=== PATIENT | female | born 1955 | race Caucasian/White ===

== ENCOUNTER → 2019-11-04 17:41 | Outpatient (BNVA) | payer MEDICARE, MEDICAID, SELFPAY | PROVIDERS: Family Provider Family Medicine; PCP Registered Nurse; Visit Provider Family Medicine | DX: E11.9 Type 2 diabetes mellitus without complications (principal); I10 Essential (primary) hypertension; E78.1 Pure hyperglyceridemia; J45.30 Mild persistent asthma, uncomplicated; Z77.120 Contact with and (suspected) exposure to mold (toxic) | CPT/HCPCS: 80048; 80061; 83036 ==

== ENCOUNTER → 2020-05-11 11:10 | Outpatient (BNVA) | payer MEDICARE, MEDICAID, SELFPAY | PROVIDERS: Family Provider Family Medicine; PCP Registered Nurse; Visit Provider Family Medicine | DX: R05 Cough (principal); J45.30 Mild persistent asthma, uncomplicated; I10 Essential (primary) hypertension; I25.10 Atherosclerotic heart disease of native coronary artery without angina pectoris; E03.9 Hypothyroidism, unspecified; E11.9 Type 2 diabetes mellitus without complications; E87.5 Hyperkalemia | CPT/HCPCS: 80053; 83036; 84443 ==

== ENCOUNTER → 2020-09-04 16:43 | Outpatient (BNVA) | payer MEDICARE, MEDICAID, SELFPAY | PROVIDERS: Family Provider Family Medicine; PCP Registered Nurse; Visit Provider Family Medicine | DX: E03.9 Hypothyroidism, unspecified (principal); I10 Essential (primary) hypertension; E11.9 Type 2 diabetes mellitus without complications; Z23 Encounter for immunization; E78.1 Pure hyperglyceridemia | CPT/HCPCS: 80053; 80061; 83036; 84443 ==

== ENCOUNTER → 2020-12-20 18:00 | Outpatient (BNVA) | payer MEDICARE, MEDICAID, SELFPAY | PROVIDERS: Family Provider Family Medicine; PCP Registered Nurse; Visit Provider Family Medicine | DX: E11.9 Type 2 diabetes mellitus without complications (principal); N18.9 Chronic kidney disease, unspecified; K76.0 Fatty (change of) liver, not elsewhere classified | CPT/HCPCS: 80053; 83036 ==

== ENCOUNTER → 2021-02-28 11:40 | Outpatient (BNVA) | payer MEDICARE, MEDICAID, SELFPAY | PROVIDERS: Family Provider Family Medicine; PCP Family Medicine; Visit Provider Family Medicine | DX: E11.9 Type 2 diabetes mellitus without complications (principal); I25.10 Atherosclerotic heart disease of native coronary artery without angina pectoris; E03.9 Hypothyroidism, unspecified | CPT/HCPCS: 80053; 83036; 84439; 84443; 84481 ==

== ENCOUNTER → 2021-06-05 14:52 | Outpatient (BNVA) | payer MEDICARE, MEDICAID, SELFPAY | PROVIDERS: Family Provider Family Medicine; PCP Family Medicine; Visit Provider Family Medicine | DX: E11.9 Type 2 diabetes mellitus without complications (principal); N18.30 Chronic kidney disease, stage 3 unspecified | CPT/HCPCS: 80048; 83036 ==

== ENCOUNTER → 2021-09-04 14:38 | Outpatient (BNVA) | payer MEDICARE, MEDICAID, SELFPAY | PROVIDERS: Family Provider Family Medicine; PCP Family Medicine; Visit Provider Family Medicine | DX: E03.9 Hypothyroidism, unspecified (principal); E11.9 Type 2 diabetes mellitus without complications | CPT/HCPCS: 80048; 83036; 84439; 84443; 84481 ==

== ENCOUNTER → 2021-12-04 14:13 | Outpatient (BNVA) | payer MEDICARE, MEDICAID, SELFPAY | PROVIDERS: Family Provider Family Medicine; PCP Family Medicine; Visit Provider Family Medicine | DX: E03.9 Hypothyroidism, unspecified (principal); I10 Essential (primary) hypertension; I25.118 Atherosclerotic heart disease of native coronary artery with other forms of angina pectoris; J30.89 Other allergic rhinitis; N18.30 Chronic kidney disease, stage 3 unspecified; J45.30 Mild persistent asthma, uncomplicated; I25.10 Atherosclerotic heart disease of native coronary artery without angina pectoris; E78.1 Pure hyperglyceridemia; E11.9 Type 2 diabetes mellitus without complications; R10.9 Unspecified abdominal pain; L82.1 Other seborrheic keratosis | CPT/HCPCS: 80048; 80061; 81000; 83036; 84443; 87086 ==

== ENCOUNTER → 2022-06-04 14:40 | Outpatient (BNVA) | payer MEDICARE, MEDICAID, SELFPAY | PROVIDERS: Family Provider Family Medicine; PCP Family Medicine; Visit Provider Family Medicine | DX: I10 Essential (primary) hypertension (principal); E11.9 Type 2 diabetes mellitus without complications; E03.9 Hypothyroidism, unspecified; I25.10 Atherosclerotic heart disease of native coronary artery without angina pectoris; J30.89 Other allergic rhinitis; J45.30 Mild persistent asthma, uncomplicated; N18.30 Chronic kidney disease, stage 3 unspecified; I25.118 Atherosclerotic heart disease of native coronary artery with other forms of angina pectoris; R05.3 Chronic cough; Z77.120 Contact with and (suspected) exposure to mold (toxic) | CPT/HCPCS: 71046; 80053; 83036; 84443; 85025 ==

== ENCOUNTER 2022-06-26 13:45 | Outpatient (CLI) | payer MEDICARE, MEDICAID, SELFPAY | END 2022-06-26 13:46 | disposition home or self-care (01) | LOC: RT 13:46 | PROVIDERS: PCP Family Medicine; Visit Provider Family Medicine | DX: J45.30 Mild persistent asthma, uncomplicated (principal); R05.3 Chronic cough; Z77.120 Contact with and (suspected) exposure to mold (toxic) | CPT/HCPCS: 94060; J7614 ==

== ENCOUNTER → 2022-09-03 14:25 | Outpatient (BNVA) | payer MEDICARE, MEDICAID, SELFPAY | PROVIDERS: Family Provider Family Medicine; PCP Family Medicine; Visit Provider Family Medicine | DX: E11.9 Type 2 diabetes mellitus without complications (principal); E03.9 Hypothyroidism, unspecified; Z23 Encounter for immunization; J45.30 Mild persistent asthma, uncomplicated; I10 Essential (primary) hypertension; R05.3 Chronic cough | CPT/HCPCS: 83036; 84439; 84443; 84481 ==

== ENCOUNTER → 2022-11-28 14:24 | Outpatient (BNVA) | payer MEDICARE, MEDICAID, SELFPAY | PROVIDERS: Family Provider Family Medicine; PCP Family Medicine; Visit Provider Family Medicine | DX: N18.30 Chronic kidney disease, stage 3 unspecified (principal); E11.9 Type 2 diabetes mellitus without complications; E78.1 Pure hyperglyceridemia; I25.118 Atherosclerotic heart disease of native coronary artery with other forms of angina pectoris; S09.90XD Unspecified injury of head, subsequent encounter; S01.91XD Laceration without foreign body of unspecified part of head, subsequent encounter; X58.XXXD Exposure to other specified factors, subsequent encounter | CPT/HCPCS: 80048; 80061; 83036 ==

== ENCOUNTER → 2023-02-09 12:02 | Outpatient (BNVA) | payer MEDICARE, MEDICAID, SELFPAY | PROVIDERS: Family Provider Family Medicine; PCP Family Medicine; Visit Provider Nurse Practitioner Family | DX: M79.602 Pain in left arm (principal) | CPT/HCPCS: 73060 ==

== ENCOUNTER 2023-02-09 14:17 | Emergency (ER) | payer MEDICARE, MEDICAID, SELFPAY ==
--- NOTE | 2023-02-09 14:20 | XRR_ITS ---
PROCEDURE INFORMATION: Exam: XR Left Shoulder Exam date and time: 02/09/2023 3:11 PM Age: 67 years old Clinical indication: Injury or trauma; Fall; Blunt trauma (contusions or hematomas); Shoulder; Left TECHNIQUE: Imaging protocol: Radiologic exam of the left shoulder. Views: 2 or more views. COMPARISON: [place] [id number] 02/09/2023 12:14 PM FINDINGS: Bones/joints: Comminuted fractures involving the humeral head and humeral head neck junction with free fracture fragments. Glenohumeral joint effusion. Soft tissues: Edema and/or hematoma is present in the soft tissues adjacent to the fracture site. XR/XR shoulder LT 1V [id number] IMPRESSION: Comminuted fractures involving the humeral head and humeral head neck junction with free fracture fragments.
[2023-02-09 14:32] VITALS: BP 159/84; PULSE 105; TEMP 36.8; O2SAT 97; BMI 30.6
--- NOTE | 2023-02-09 14:41 | ED_ITS ---
HPI - Extremity Problem General: Chief complaint: Extremity Injury, Upper Stated complaint: left shoulder pain Time Seen by Provider: 02/09/23 14:30 Source: patient Mode of arrival: ambulatory Limitations: no limitations History of Present Illness: 67-year-old female states that she had tripped this morning and she fell straight onto her left side states she fell on her left shoulder has had pain since then. States it happened this morning she is seen at the clinic had an x- ray at noon I did review the x-ray she does have a proximal humerus fracture with a dislocation she denies any other injuries. Associated symptoms: Deny chest pain, fever(s) or rash Review of Systems Const: Denies: fever(s), chills or body aches Eyes: Denies: blurry vision or eye discomfort ENMT: Denies: throat pain or dental pain Card: Denies: chest pain Resp: Denies: dyspnea GI: Denies: abdominal pain, nausea, vomiting or diarrhea Musc: Reports: extremity pain; Denies: neck pain or back pain Skin/Breast: Denies: rash Neuro: Denies: headache(s) PFSH ED PFSH: Medical History Asthma CAD (coronary artery disease) Chronic use of benzodiazepine for therapeutic purpose CKD (chronic kidney disease) Dysthymic disorder Environmental and seasonal allergies Generalized anxiety disorder Hypertension, benign Patient did not tolerate higher dose of telmisartan in the past, caused low Hypertriglyceridemia Hypothyroid IBS (irritable bowel syndrome) Nonalcoholic fatty liver disease Psychiatric care Well controlled type 2 diabetes mellitus Metformin and Jardiance intolerance. Glipizide side effect Family History Grandmother Cancer breast cancer Heart disease Mother Heart disease Social History Smoking and tobacco status: never smoked Alcohol intake: never Substance/Drug Use: never Do you think of yourself as: Straight/Heterosexual Current gender identity: Male Female Reproductive History: Spontaneous abortions: No Physical Exam Const: COMMON NORMALS: no acute distress, patient oriented x3 and healthy appearing HENMT: COMMON NORMALS: normocephalic and atraumatic HEAD & SCALP: normocephalic and atraumatic Eye: COMMON NORMALS: conjunctivae normal CONJUNCTIVA: Yes conjunctivae normal Neck/C-Spine: COMMON NORMALS: full ROM and supple Chest: COMMONS NORMALS: normal inspection of the chest Resp: COMMON NORMALS: normal respiratory effort and clear to auscultation bilaterally AUSCULTATION: clear to auscultation bilaterally Cardio: COMMON NORMALS: regular rate, regular rhythm and No murmurs present (Cardio) RATE: regular rate RHYTHM: regular rhythm GI: INSPECTION: Yes normal to inspection Extremity: NARRATIVE EXTREMITY EXAM: Tenderness over left shoulder with obvious deformity distal pulses and sensation intact Neuro: COMMON NORMALS: patient oriented x3, moves all extremities and no focal motor deficits Psych: COMMON NORMALS: mental status grossly normal, Normal thought process present and cooperative THOUGHT PROCESS: Normal thought process present Skin: COMMON NORMALS: no rashes or lesions noted and no wounds GENERAL SKIN EXAM: no rashes or lesions noted Procedures Orthopedic Joint Reduction Joint #1: Time Out Performed: Yes Side: left Joint Reduction Location: shoulder Analgesia: procedural sedation Shoulder Technique Used (if applicable): traction/counter-traction Post-reduction neuro exam: intact Post-reduction vascular: intact Post Reduction X-Ray Obtained: Yes Post Reduction X-Ray Results: reduced Splint Applied: Yes Patient Tolerated Procedure: well Procedural Sedation Indication: fracture/dislocation reduction ASA Class: II Time of Last PO Intake: 08:00 Preparation: radiation monitor applied and pulse oximeter IV Propofol dose (mg): 50 Complications: none Course Vital Signs: Vital signs: Vital Signs Temperature 98.3 F 02/09/23 14:32 Pulse Rate 105 H 02/09/23 14:32 Blood Pressure 159/84 02/09/23 14:32 Pulse Oximetry 97 02/09/23 14:32 Oxygen Delivery Me thod Room Air 02/09/23 14:32 MDM - Extremity (Nontraumatic) Medical Decision Making Patient presents here with a dislocation of her left shoulder with a humerus fracture as well. I did reduce the shoulder patient placed in immobilizer up spoke to Dr. Cazares and she is to follow-up with Dr. Brown next week she is return if worsening she had no other injuries noted. Discharge Plan Discharge Patient Disposition: Home Clinical Impression: Anterior dislocation of left shoulder, Fracture of left humerus Condition: Stable Prescriptions: New hydrocodone-acetaminophen 5-325 mg tablet 1 tab PO Q6H PRN (Reason: pain) Qty: 14 0RF No Action diphenhydramine HCl [Allergy Relief(diphenhydramin)] 25 mg capsule See Rx Instructions .ROUTE .COMPLEX Qty: 30 2RF Dose Instruction: 1 CAPSULE BY MOUTH AT BEDTIME NEEDED FOR ALLERGY SYMPTOMS Rx Instructions: 1 CAPSULE BY MOUTH AT BEDTIME NEEDED FOR ALLERGY SYMPTOMS Cholestyramine Light 4 gram powder 4 gm PO DAILY Probiotic Acidophilus 1.5 mg (250 million cell) capsule ? mmu cells PO DAILY albuterol sulfate [ProAir HFA] 90 mcg/actuation HFA aerosol inhaler 1 - 2 puff INHALATION Q4H PRN triamcinolone acetonide 0.1 % cream 1 applic TOPICAL DAILY Allergy Eye (naphazoline-phen) 0.025-0.3 % drops 1 drop ophthalmic (eye) QID PRN (Reason: allergy symptoms) Qty: 15 2RF alcohol swabs Pads, Medicated 1 pad topical TID PRN (Reason: as needed to check blood sugar) 30 Days Qty: 100 11RF ferrous sulfate [FeroSul] 325 mg (65 mg iron) tablet See Rx Instructions .ROUTE .COMPLEX Qty: 30 5RF Dose Instruction: TAKE 1 TABLET BY MOUTH DAILY Rx Instructions: TAKE 1 TABLET BY MOUTH DAILY clopidogrel 75 mg tablet See Rx Instructions .ROUTE .COMPLEX Qty: 30 5RF Hold Instructions: Home Medication placed on hold at Doctor's office Dose Instruction: TAKE 1 TABLET BY MOUTH DAILY Rx Instructions: TAKE 1 TABLET BY MOUTH DAILY amlodipine 10 mg tablet See Rx Instructions .ROUTE .COMPLEX 90 Days Qty: 90 1RF Dose Instruction: TAKE 1 TABLET BY MOUTH DAILY Rx Instructions: TAKE 1 TABLET BY MOUTH DAILY (DME) lancets [facility] [place] See Rx Instructions .ROUTE .MEDSUPPLY Qty: 100 11RF Rx Instructions: For use with glucose meter, brand/type per insurance (DME) Blood Glucose Test Strip See Rx Instructions .ROUTE .MEDSUPPLY Qty: 50 11RF Rx Instructions: Brand/type to go with meter per insurance coverage ([facility] [place]) blood-glucose meter [Blood Glucose Monitoring] Kit See Rx Instructions .ROUTE .MEDSUPPLY Qty: 1 0RF Rx Instructions: Brand/type per insurance coverage alcohol swabs Pads, Medicated 1 pad topical TID PRN (Reason: as needed to check blood sugar) 30 Days Qty: 100 11RF acetaminophen 500 mg tablet 500 mg PO ONCE Qty: 2 0RF fluvoxamine 100 mg tablet 100 mg PO TID Qty: 90 2RF lorazepam [Ativan] 0.5 mg tablet 0.5 mg PO BID PRN (Reason: severe anxiety) Qty: 55 2RF aspirin 81 mg tablet,delayed release (DR/EC) See Rx Instructions .ROUTE .COMPLEX Qty: 30 2RF Hold Instructions: Home Medication placed on hold at Doctor's office Dose Instruction: TAKE 1 TABLET BY MOUTH DAILY Rx Instructions: TAKE 1 TABLET BY MOUTH DAILY fluticasone propionate 50 mcg/actuation spray,suspension See Rx Instructions .ROUTE .COMPLEX Qty: 16 5RF Dose Instruction: 1 SPRAY intranasally every 12 hours administer into each nostril Rx Instructions: 1 SPRAY intranasally every 12 hours administer into each nostril fluticasone propionate [Flovent HFA] 44 mcg/actuation HFA aerosol inhaler See Rx Instructions .ROUTE .COMPLEX Qty: 10.6 5RF Dose Instruction: 1 INHALATION TWICE A DAY Rx Instructions: 1 INHALATION TWICE A DAY folic acid 1 mg tablet See Rx Instructions .ROUTE .COMPLEX Qty: 30 2RF Dose Instruction: TAKE 1 TABLET BY MOUTH DAILY Rx Instructions: TAKE 1 TABLET BY MOUTH DAILY Rybelsus 14 mg tablet See Rx Instructions .ROUTE .COMPLEX Qty: 30 2RF Dose Instruction: TAKE 1 TABLET BY MOUTH DAILY Rx Instructions: TAKE 1 TABLET BY MOUTH DAILY telmisartan 20 mg tablet See Rx Instructions .ROUTE .COMPLEX Qty: 60 1RF Dose Instruction: TAKE 1 TABLET BY MOUTH TWICE A DAY Rx Instructions: TAKE 1 TABLET BY MOUTH TWICE A DAY levothyroxine 100 mcg tablet See Rx Instructions .ROUTE .COMPLEX Qty: 30 1RF Dose Instruction: TAKE 1 TABLET BY MOUTH DAILY Rx Instructions: TAKE 1 TABLET BY MOUTH DAILY isosorbide mononitrate 20 mg tablet See Rx Instructions .ROUTE .COMPLEX Qty: 45 1RF Dose Instruction: TAKE 1 & 1/2 TABLET BY MOUTH DAILY Rx Instructions: TAKE 1 & 1/2 TABLET BY MOUTH DAILY pravastatin 20 mg tablet See Rx Instructions .ROUTE .COMPLEX Qty: 30 3RF Dose Instruction: TAKE 1 TABLET BY MOUTH DAILY Rx Instructions: TAKE 1 TABLET BY MOUTH DAILY Discharge Orders: Discharge ED (Routine); Ordered 02/09/23 Ordered By: Radha Becker Referrals: Tabitha Otoole MD [Physician] - 1-3 days Amelie Renteria MD [Primary Care Provider] - Discharge Diet: Advance as tolerated Discharge Activity: Limit activity as instructed Patient Instructions: Arm Fracture in Adults (ED), Shoulder Dislocation (ED), Opioid Safety Coding Level of Care Code ED Ct Scan Special Procedures Technologist for Zeenat Lott
[2023-02-09] MEDS: propofol 10 mg/mL SDV 20 mL 100 MG IVP (15:09)
[2023-02-09 15:25] VITALS: BP 121/70; PULSE 83; RESP 16; O2SAT 99
--- NOTE | 2023-02-09 15:27 | PC.NURSE ---
Time out 1505 RT administered 10L NC 1506 Dr. Becker administered 50 mg propofol 1507 Eugenio reduced left shoulder and called for xray 1508 procedure ended
[2023-02-09] MEDS: HYDROcodone-acetaminophen 5-325 mg Tablet 2 TAB PO (15:46)
--- NOTE | 2023-02-10 09:31 | DCPLANNER ---
Addendum entered by Jayla Burgos 02/12/23 14:03: Patient had a follow up appointment scheduled with ortho - patient did attend appointment. Original Note: sales office manager had message to schedule a follow up appointment for patient with ortho. sales office manager sent patients information to the front office staff at ortho. Patients information will be printed and reviewed. Clinic will call patient with appointment information.
== END 2023-02-09 15:48 | disposition home or self-care (01) ==
PROVIDERS: Emergency Provider Emergency Medicine; PCP Family Medicine
DX: S43.085A Other dislocation of left shoulder joint, initial encounter (principal); S42.292A Other displaced fracture of upper end of left humerus, initial encounter for closed fracture; W01.0XXA Fall on same level from slipping, tripping and stumbling without subsequent striking against object, initial encounter; I25.10 Atherosclerotic heart disease of native coronary artery without angina pectoris; I12.9 Hypertensive chronic kidney disease with stage 1 through stage 4 chronic kidney disease, or unspecified chronic kidney disease; E11.22 Type 2 diabetes mellitus with diabetic chronic kidney disease; N18.9 Chronic kidney disease, unspecified; M79.602 Pain in left arm
CPT/HCPCS: 23650; 29240; 73020; 73060; 96374; 99284; J2704; L3670

== ENCOUNTER → 2023-02-12 08:39 | Outpatient (BNVA) | payer MEDICARE, MEDICAID, SELFPAY | PROVIDERS: PCP Family Medicine; Referring Provider Emergency Medicine; Visit Provider Specialist | DX: S43.015A Anterior dislocation of left humerus, initial encounter (principal); S42.212A Unspecified displaced fracture of surgical neck of left humerus, initial encounter for closed fracture; W06.XXXA Fall from bed, initial encounter | CPT/HCPCS: 24530; 73030; 99204 ==

== ENCOUNTER → 2023-02-19 12:55 | Outpatient (BNVA) | payer MEDICARE, MEDICAID, SELFPAY | PROVIDERS: PCP Family Medicine; Visit Provider Specialist | DX: S43.015A Anterior dislocation of left humerus, initial encounter (principal); S42.212A Unspecified displaced fracture of surgical neck of left humerus, initial encounter for closed fracture; W06.XXXA Fall from bed, initial encounter | CPT/HCPCS: 73030; 99024 ==

== ENCOUNTER → 2023-03-05 13:16 | Outpatient (BNVA) | payer MEDICARE, MEDICAID, SELFPAY | PROVIDERS: Family Provider Family Medicine; PCP Family Medicine; Visit Provider Family Medicine | DX: E03.9 Hypothyroidism, unspecified (principal); E11.9 Type 2 diabetes mellitus without complications; N18.30 Chronic kidney disease, stage 3 unspecified | CPT/HCPCS: 80048; 83036; 84439; 84443; 84481 ==

== ENCOUNTER → 2023-03-12 12:50 | Outpatient (BNVA) | payer MEDICARE, MEDICAID, SELFPAY | PROVIDERS: Family Provider Family Medicine; PCP Family Medicine; Visit Provider Specialist | DX: S42.215D Unspecified nondisplaced fracture of surgical neck of left humerus, subsequent encounter for fracture with routine healing (principal); W06.XXXD Fall from bed, subsequent encounter | CPT/HCPCS: 73060; 99024 ==

== ENCOUNTER → 2023-06-03 14:03 | Outpatient (BNVA) | payer MEDICARE, MEDICAID, SELFPAY | PROVIDERS: Family Provider Family Medicine; PCP Family Medicine; Visit Provider Family Medicine | DX: E03.9 Hypothyroidism, unspecified (principal); E11.9 Type 2 diabetes mellitus without complications; I10 Essential (primary) hypertension | CPT/HCPCS: 80048; 83036; 84439; 84443; 84481 ==

== ENCOUNTER → 2023-12-02 14:02 | Outpatient (BNVA) | payer MEDICARE, MEDICAID, SELFPAY | PROVIDERS: Family Provider Family Medicine; PCP Family Medicine; Visit Provider Family Medicine | DX: E11.9 Type 2 diabetes mellitus without complications (principal); E03.9 Hypothyroidism, unspecified; I10 Essential (primary) hypertension | CPT/HCPCS: 80053; 80061; 83036; 84439; 84443; 84481 ==

== ENCOUNTER → 2023-12-25 14:16 | Outpatient (BNVA) | payer MEDICARE, MEDICAID, SELFPAY | PROVIDERS: Family Provider Family Medicine; PCP Family Medicine; Visit Provider Emergency Medicine | DX: J45.30 Mild persistent asthma, uncomplicated (principal); R06.02 Shortness of breath | CPT/HCPCS: 71046 ==

== ENCOUNTER → 2024-03-03 13:36 | Outpatient (BNVA) | payer MEDICARE, MEDICAID, OTHER, SELFPAY | PROVIDERS: Family Provider Family Medicine; PCP Family Medicine; Visit Provider Family Medicine | DX: E11.9 Type 2 diabetes mellitus without complications (principal); I10 Essential (primary) hypertension | CPT/HCPCS: 80048; 83036 ==

== ENCOUNTER → 2024-03-25 10:24 | Outpatient (BNVA) | payer MEDICARE, OTHER, SELFPAY | PROVIDERS: Family Provider Family Medicine; PCP Family Medicine; Visit Provider Family Medicine | DX: I10 Essential (primary) hypertension (principal) | CPT/HCPCS: 80048 ==

== ENCOUNTER → 2024-09-01 14:25 | Outpatient (BNVA) | payer MEDICARE, MEDICAID, SELFPAY | PROVIDERS: Family Provider Family Medicine; PCP Family Medicine; Visit Provider Family Medicine | DX: E03.9 Hypothyroidism, unspecified (principal); E11.22 Type 2 diabetes mellitus with diabetic chronic kidney disease; I12.9 Hypertensive chronic kidney disease with stage 1 through stage 4 chronic kidney disease, or unspecified chronic kidney disease; N18.30 Chronic kidney disease, stage 3 unspecified | CPT/HCPCS: 80048; 83036; 84439; 84443; 84481 ==

== ENCOUNTER → 2024-10-28 14:33 | Outpatient (BNVA) | payer MEDICARE, MEDICAID, SELFPAY | PROVIDERS: Family Provider Family Medicine; PCP Family Medicine; Referring Provider Family Medicine; Visit Provider Family Medicine | DX: N18.30 Chronic kidney disease, stage 3 unspecified (principal) | CPT/HCPCS: 80048 ==

== ENCOUNTER → 2025-01-26 11:09 | Outpatient (BNVA) | payer MEDICARE, MEDICAID, SELFPAY | PROVIDERS: Family Provider Family Medicine; PCP Family Medicine; Visit Provider Family Medicine | DX: E11.9 Type 2 diabetes mellitus without complications (principal); Z86.2 Personal history of diseases of the blood and blood-forming organs and certain disorders involving the immune mechanism; I10 Essential (primary) hypertension; E03.9 Hypothyroidism, unspecified; I25.118 Atherosclerotic heart disease of native coronary artery with other forms of angina pectoris; I25.10 Atherosclerotic heart disease of native coronary artery without angina pectoris; J44.9 Chronic obstructive pulmonary disease, unspecified | CPT/HCPCS: 80048; 80061; 83036; 83540; 84443; 85025 ==

== ENCOUNTER → 2025-05-10 12:52 | Outpatient (BNVA) | payer MEDICARE, MEDICAID, SELFPAY | PROVIDERS: Family Provider Family Medicine; PCP Family Medicine; Referring Provider Family Medicine; Visit Provider Family Medicine | DX: I10 Essential (primary) hypertension (principal); E11.9 Type 2 diabetes mellitus without complications; E03.9 Hypothyroidism, unspecified | CPT/HCPCS: 80053; 84443 ==

== ENCOUNTER → 2025-05-19 12:55 | Outpatient (BNVA) | payer MEDICARE, MEDICAID, SELFPAY | PROVIDERS: Family Provider Family Medicine; PCP Family Medicine; Visit Provider Family Medicine | DX: N18.30 Chronic kidney disease, stage 3 unspecified (principal); E11.9 Type 2 diabetes mellitus without complications | CPT/HCPCS: 80061; 83036 ==

== ENCOUNTER → 2025-09-19 13:53 | Outpatient (BNVA) | payer MEDICARE, MEDICAID, SELFPAY | PROVIDERS: Family Provider Family Medicine; PCP Family Medicine; Visit Provider Family Medicine | DX: E03.9 Hypothyroidism, unspecified (principal); E11.9 Type 2 diabetes mellitus without complications; I10 Essential (primary) hypertension | CPT/HCPCS: 80048; 83036; 84443 ==